=== PATIENT | female | born 1995 | race Hispanic/Latino ===

== ENCOUNTER 2023-12-14 13:15 | Outpatient (CLI) | payer OTHER | END 2023-12-14 13:16 | disposition home or self-care (01) | LOC: CSHULT 13:15 | PROVIDERS: ATTEND Nurse Practitioner Women's Health | DX: O44.42 Low lying placenta NOS or without hemorrhage, second trimester (principal); Z3A.25 25 weeks gestation of pregnancy | CPT/HCPCS: 76805 ==